=== PATIENT | male | born 2000 | race Caucasian/White ===

== ENCOUNTER 2022-08-22 08:40 | Outpatient (CLI) | payer OTHER ==
[~2022-08-22] VITALS: Ht 185.4 cm; Wt 113.6 kg
[~2022-08-22 08:40] MED LIST: DESMOPRESSIN ACETATE 30 MCG in NS 50 ML IV ONE
[2022-08-22 09:15] VITALS: BP 130/86
[2022-08-22 10:40] VITALS: BP 140/83
== END 2022-08-22 10:50 | disposition home or self-care (01) ==
LOC: M INFU 08:40
PROVIDERS: ATTEND Internal Medicine Hematology & Oncology
DX: D68.00 Von Willebrand disease, unspecified (principal)
CPT/HCPCS: 96365; J2597